=== PATIENT | female | born 1990 | race American Indian/Alaskan Native ===

== ENCOUNTER 2021-07-20 04:50 | Emergency (ER) | payer MEDICAID ==
[2021-07-20] MEDS ORDERED: KETOROLAC 30 MG/1 ML INJ IV ONE (07:30)
[2021-07-20] MEDS ORDERED: dexAMETHasone 20 MG/5 ML VIAL IV ONE (07:30)
[2021-07-20] MEDS ORDERED: diphenhydrAMINE 50 MG/ML VIAL IV ONE (07:30)
[2021-07-20] MEDS ORDERED: METOCLOPRAMIDE 10 MG/2 ML INJ IV ONE (07:30)
--- NOTE | 2021-07-20 07:34 | Emergency Department Report ---
ED General Adult HPI - General Chief complaint: Headache Stated complaint: BRIDGES/DIZZINESS/VOMITING Time Seen by Provider: 07/20/21 07:01 Source: patient Mode of arrival: Ambulatory Limitations: No Limitations - History of Present Illness Initial comments: With known history of migraine headaches presents to the ER today with complaint of headache, vomiting and dizzy. Patient states that her symptoms started about 2 days ago. She states that the headache is mainly located in the right parietal scalp, and sometimes occipital and is she described as throbbing and achy. She states that today she started vomiting and felt dizzy. She vomited about 3-4 times this morning. She states that it feels similar to that her of her migraines, but she states that she has been taking her Maxalt and her naproxen and even tried Excedrin and took ibuprofen and has not been helping. She states that she had a mild dry cough and some nasal congestion but denies any other URI symptoms. She denies any fever or diarrhea or abdominal pain no head injury. She denies any neck pain. She states that she has been around her boyfriend with had URI flulike symptoms. She states that she has not taken a COVID-19 test since she has been sick. Her last menstrual cycle was July 09. Complaint: BRIDGES/vomiting/dizzy -: Gradual, days(s) (2) - Related Data Previous Rx's Medication Instructions Recorded Last Taken Type Butalb/Acetamin/Caff 50-325-40 1 tab PO Q6HR PRN #12 tab 07/20/21 Unknown Rx [Fioricet 50-325-40] Ondansetron [Zofran Odt] 4 mg PO Q8HR #15 tab.rapdis 07/20/21 Unknown Rx Allergies Allergy/AdvReac Type Severity Reaction Status Date / Time No Known Allergies Allergy Verified 07/20/21 05:35 ED Review of Systems ROS: Stated complaint: BRIDGES/DIZZINESS/VOMITING Other details as noted in HPI Comment: All other systems reviewed and negative Constitutional: denies: chills, fever Eyes: as per HPI ENT: congestion. denies: ear pain, throat pain, dental pain, hearing loss, epistaxis Respiratory: cough. denies: shortness of breath, SOB with exertion, SOB at rest, wheezing Cardiovascular: denies: chest pain, palpitations Gastrointestinal: nausea, vomiting. denies: abdominal pain, diarrhea, constipation, hematemesis, melena, hematochezia Genitourinary: denies: urgency, dysuria, discharge Musculoskeletal: denies: back pain, joint swelling, arthralgia Skin: denies: rash, lesions Neurological: headache, other (dizzy). denies: weakness, numbness, paresthesias, confusion, abnormal gait, vertigo Psychiatric: denies: anxiety, depression, auditory hallucinations, visual hallucinations, homicidal thoughts, suicidal thoughts Hematological/Lymphatic: denies: easy bleeding, easy bruising, swollen glands ED Past Medical Hx - Past Medical History Hx Headaches / Migraines: Yes Hx Asthma: Yes - Surgical History Past Surgical History?: No - Medications Home Medications: Home Medications Medication Instructions Recorded Confirmed Last Taken Type Butalb/Acetamin/Caff 50-325-40 1 tab PO Q6HR PRN #12 tab 07/20/21 Unknown Rx [Fioricet 50-325-40] Ondansetron [Zofran Odt] 4 mg PO Q8HR #15 tab.rapdis 07/20/21 Unknown Rx ED Physical Exam - General Limitations: No Limitations General appearance: alert, in no apparent distress - Head Head exam: Present: atraumatic, normocephalic, normal inspection - Eye Eye exam: Present: normal appearance, PERRL, EOMI Pupils: Present: normal accommodation - ENT ENT exam: Present: normal exam, mucous membranes moist - Expanded ENT Exam Expanded TM/Canal exam: Effusion: Right TM, Left TM Mouth exam: Present: normal external inspection Throat exam: Positive: normal inspection - Neck Neck exam: Present: normal inspection - Respiratory Respiratory exam: Present: normal lung sounds bilaterally. Absent: respiratory distress, wheezes, rales, rhonchi - Cardiovascular Cardiovascular Exam: Present: regular rate, normal rhythm, normal heart sounds - GI/Abdominal GI/Abdominal exam: Present: soft. Absent: distended, tenderness, guarding - Neurological Exam Neurological exam: Present: alert, oriented X3, CN II-XII intact, normal gait - Psychiatric Psychiatric exam: Present: normal affect, normal mood - Skin Skin exam: Present: intact ED Course Vital Signs 07/20/21 07/20/21 05:34 10:33 Temperature 98.9 F 97.5 F L Pulse Rate 105 H 84 Respiratory 18 16 Rate Blood Pressure 130/77 128/66 [Right] O2 Sat by Pulse 100 100 Oximetry ED Medical Decision Making - Medical Decision Making Rapid flu negative. Urinalysis unremarkable. hCG negative. Patient reports feeling better after meds. She is observed sitting in recliner on her phone. She is not toxic or ill-appearing. She has no meningeal signs on exam. She is neurologically intact with a normal gait. Repeat vital signs are stable. Patient symptoms could be related to viral illness and flareup of her migraine. I do suspect meningitis, sepsis, intracranial abnormality/emergencies, severe pneumonia, TIA/CVA or any other emergent conditions warranting additional testing at this time. Discussed all results with patient. I did encourage that she get a COVID-19 test as this could potentially be causing some of her symptoms. Recommend that she continue with her regular migraine headache medication but will give her some medication for nausea and pain. Patient expressed understanding of all instructions and agree with plan. Patient was stable at time of discharge. Critical care attestation.: If time is entered above; I have spent that time in minutes in the direct care of this critically ill patient, excluding procedure time. ED Disposition Clinical Impression: Migraine headache, URI (upper respiratory infection) Disposition: HOME / SELF CARE / HOMELESS Is pt being admited?: No Does the pt Need Aspirin: No Condition: Stable Instructions: Migraine Headache, [id number], Viral Respiratory Infection, [id number] Additional Instructions: Recommend that you continue taking your Maxalt and naproxen, take the Fioricet for added headache control and the Zofran for nausea. Your flu swab today was negative. You may want to consider to get a COVID-19 test as this could be a possible cause of your symptoms as well. In the meantime drink lots of fluids, take a multivitamin, and follow-up closely with your PCP. Return to the ER if your symptoms worsens in any way. Prescriptions: Butalb/Acetamin/Caff 50-325-40 [Fioricet 50-325-40] 1 tab PO Q6HR PRN #12 tab PRN Reason: Headache Ondansetron [Zofran Odt] 4 mg PO Q8HR #15 tab.rapdis Referrals: PRIMARY CARE, [Primary Care Provider] - 3-5 Days Forms: Work/School Release Form(ED) Time of Disposition: 10:09
[2021-07-20 09:49] LABS: Bilirubin,Urine NEG (Negative); Blood,Urine NEG (Negative); Color,Urine Yellow (Yellow); Mucus,Urine 2+ /HPF; Urobilinogen,Urine < 2.0 mg/dL (<2.0)
[2021-07-20 09:51] LABS: HCG Qualitative,Urine Negative (Negative)
[2021-07-20 10:36] VITALS: BP 128/66
== END 2021-07-20 10:44 | disposition home or self-care (01) ==
LOC: ED 04:50
DX: G43.909 Migraine, unspecified, not intractable, without status migrainosus (principal); J06.9 Acute upper respiratory infection, unspecified; J45.909 Unspecified asthma, uncomplicated; Z79.899 Other long term (current) drug therapy
CPT/HCPCS: 81001; 81025; 87400; 96374; 96375; 99283; J1100; J1200; J1885; J2765